=== PATIENT | male | born 1965 | race Hispanic/Latino ===

== ENCOUNTER 2017-07-06 13:59 | Outpatient (CLI) | payer BC ==
--- NOTE | 2017-07-06 14:37 | XRay Report ---
LEFT SHOULDER, 3 VIEWS History: Left shoulder pain. There is normal bone mineralization. No evidence for fracture, dislocation or bone lesion. The a.c. joint appears slightly widened measuring up to 1 cm in width. This could indicate ligamentous injury. The soft tissues are unremarkable. IMPRESSION: Question ligamentous injury at the a.c. joint. Please correlate with the patient's clinical presentation.
== END 2017-07-06 14:00 | disposition home or self-care (01) ==
LOC: SPVIMAG 13:59
PROVIDERS: ATTEND Internal Medicine
DX: M25.512 Pain in left shoulder (principal)